=== PATIENT | female | born 1985 | race Hispanic/Latino ===

== ENCOUNTER 2021-04-23 12:22 | Emergency (ER) | payer MEDICAID ==
[2021-04-23 13:40] VITALS: BP 133/80
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
== END 2021-04-23 16:22 | disposition home or self-care (01) ==
LOC: ED 12:22
DX: M76.62 Achilles tendinitis, left leg (principal); J02.8 Acute pharyngitis due to other specified organisms; B96.89 Other specified bacterial agents as the cause of diseases classified elsewhere; Z79.2 Long term (current) use of antibiotics; Z79.899 Other long term (current) drug therapy
CPT/HCPCS: 99283

== ENCOUNTER 2021-05-14 08:13 | Emergency (ER) | payer SELFPAY ==
[2021-05-14 08:42] VITALS: BP 140/80
[2021-05-14] MEDS ORDERED: KETOROLAC 60 MG/2 ML INJ IM ONE (11:00)
[2021-05-14] MEDS ORDERED: dexAMETHasone 20 MG/5 ML VIAL IM ONE (11:00)
--- NOTE | 2021-05-14 11:06 | Emergency Department Report ---
ED General Adult HPI - General Chief complaint: Neck Pain/Injury Stated complaint: PAIN IN THE RIGHT SIDE OF NECK TO THE BACK Time Seen by Provider: 05/14/21 10:56 Source: patient Mode of arrival: Ambulatory Limitations: No Limitations - History of Present Illness Initial comments: Patient is a 35-year-old female who presents with 2 complaints. She states that her first complaint is right knee pain that began this morning. She states this morning when she was getting ready for work she felt a popping sensation in her right knee. She states that she did not fall to the ground. She denies ever injuring this knee in the past. She is ambulatory. Patient states that her second complaint is that she has right-sided neck pain that radiates down her right arm that began 3 to 4 days ago. She reports that she went to another hospital and they prescribed her Flexeril and tramadol and gave her 4 tablets of each but has not been helping. She denies any fall or injury. She denies any numbness, weakness, bowel or bladder incontinence, fever, neck stiffness, nausea, vomiting, diarrhea. Patient denies any past medical history. No allergies to medications. She denies any history of diabetes. She states that her menstrual cycle just ended yesterday. - Related Data Previous Rx's Medication Instructions Recorded Last Taken Type Amoxicillin [Trimox CAP] 500 mg PO BID 10 Days #20 capsule 04/23/21 Unknown Rx Naproxen 500 mg PO BID PRN #20 tablet 04/23/21 Unknown Rx Menthol/Camphor [Follett Bill[place] 1 applicatio TP BID #18 oint...g. 05/14/21 Unknown Rx Ointment] Naproxen [EC-Naprosyn] 500 mg PO BID PRN #20 tablet.dr 05/14/21 Unknown Rx Prednisone [predniSONE 10 mg 10 mg PO .TAPER #1 tab.ds.pk 05/14/21 Unknown Rx (6-Day Pack, 21 Tabs)] methOCARBAMOL [Robaxin TAB] 500 mg PO BID PRN #20 tab 05/14/21 Unknown Rx Allergies Allergy/AdvReac Type Severity Reaction Status Date / Time No Known Allergies Allergy Verified 04/23/21 13:40 ED Review of Systems ROS: Stated complaint: PAIN IN THE RIGHT SIDE OF NECK TO THE BACK Other details as noted in HPI Comment: All other systems reviewed and negative ED Past Medical Hx - Past Medical History Previous Medical History?: No - Surgical History Past Surgical History?: Yes Hx Cholecystectomy: Yes Additional Surgical History: - Social History Smoking Status: Current Every Day Smoker Substance Use Type: Alcohol - Medications Home Medications: Home Medications Medication Instructions Recorded Confirmed Last Taken Type Amoxicillin [Trimox CAP] 500 mg PO BID 10 Days #20 capsule 04/23/21 Unknown Rx Naproxen 500 mg PO BID PRN #20 tablet 04/23/21 Unknown Rx Menthol/Camphor [Follett [place] 1 applicatio TP BID #18 oint...g. 05/14/21 Unknown Rx Ointment] Naproxen [EC-Naprosyn] 500 mg PO BID PRN #20 tablet. 05/14/21 Unknown Rx Prednisone [predniSONE 10 mg 10 mg PO .TAPER #1 tab.ds.pk 05/14/21 Unknown Rx (6-Day Pack, 21 Tabs)] methOCARBAMOL [Robaxin TAB] 500 mg PO BID PRN #20 tab 05/14/21 Unknown Rx ED Physical Exam - General Limitations: No Limitations General appearance: alert, in no apparent distress - Head Head exam: Present: atraumatic, normocephalic - Eye Eye exam: Present: normal appearance - ENT ENT exam: Present: mucous membranes moist - Neck Neck exam: Present: normal inspection, tenderness (right sided C-spine paraspinal ttp, no midline C-spine ttp, no step offs, no deformities ), full ROM. Absent: meningismus - Respiratory Respiratory exam: Present: normal lung sounds bilaterally. Absent: respiratory distress, wheezes, rales, rhonchi, stridor, chest wall tenderness, accessory muscle use, decreased breath sounds, prolonged expiratory - Cardiovascular Cardiovascular Exam: Present: regular rate, normal rhythm, normal heart sounds. Absent: systolic murmur, diastolic murmur, rubs, gallop - Extremities Exam Extremities exam: Present: other (ttp to the right anterior knee, FROM of the RLE with discomfort upon flexion of the right knee, no deformity, no edema, neurovascularly intact) - Back Exam Back exam: Present: normal inspection, full ROM. Absent: paraspinal tenderness, vertebral tenderness - Neurological Exam Neurological exam: Present: alert, oriented X3, CN II-XII intact, normal gait. Absent: motor sensory deficit - Psychiatric Psychiatric exam: Present: normal affect, normal mood - Skin Skin exam: Present: warm, dry, intact ED Course Vital Signs 05/14/21 08:36 Temperature 98.4 F Pulse Rate 81 Respiratory 20 Rate Blood Pressure 140/80 O2 Sat by Pulse 100 Oximetry ED Medical Decision Making - Radiology Data Radiology results: report reviewed Ordering Physician: PATRICIO HANSEN Date of Service: 05/14/21 Procedure(s): XR knee 3V RT Accession Number(s): [id number] cc: PATRICIO HANSEN Fluoro Time In Minutes: Right knee radiograph, 3 views. HISTORY: Pain COMPARISON: None FINDINGS: No acute fracture, malalignment, or joint capsular distention. Soft tissues are unremarkable. IMPRESSION: No acute process of the right knee. Signer Name: Leonela Wilson MD Signed: 05/14/2021 11:45 AM Workstation Name: [id number] Transcribed By: JS Dictated By: LEONELA WILSON MD Electronically Authenticated By: LEONELA WILSON MD Signed Date/Time: 05/14/21 1145 DD/ 1144 TD/TT: Print - Medical Decision Making Patient is a 35-year-old female who presents with 2 complaints. She states that her first complaint is right knee pain that began this morning. She states this morning when she was getting ready for work she felt a popping sensation in her right knee. She states that she did not fall to the ground. She denies ever injuring this knee in the past. She is ambulatory. Patient states that her second complaint is that she has right-sided neck pain that radiates down her right arm that began 3 to 4 days ago. She reports that she went to another hospital and they prescribed her Flexeril and tramadol and gave her 4 tablets of each but has not been helping. She denies any fall or injury. She denies any numbness, weakness, bowel or bladder incontinence, fever, neck stiffness, nausea, vomiting, diarrhea. Patient denies any past medical history. No allergies to medications. She denies any history of diabetes. She states that her menstrual cycle just ended yesterday. Vitals are stable. On exam:right sided C-spine paraspinal ttp, no midline C-spine ttp, no step offs, no deformities, ttp to the right anterior knee, FROM of the RLE with discomfort upon flexion of the right knee, no deformity, no edema, neurovascularly intact, no focal neuro deficits. X-ray right knee: IMPRESSION: No acute process of the right knee. Symptoms likely related to knee sprain. Neck pain could be related to muscle strain versus cervical radiculopathy. Patient has had no trauma, she has no fever, no meningeal signs, she denies IV drug use, steroid use, or history of cancer. Patient given medications while in the emergency department with improvement of her symptoms. Patient given prescription for medications. Patient placed in Lucas wrap by nurse remained neurovascularly intact. Advised patient Please use medication as prescribed. Do not drive or operate machinery while taking muscle relaxer Robaxin. May use ice pack, heating pad, rest, and salt bath. Do not use ointment while doing heat or ice. Follow-up with orthopedic doctor. Follow-up with your primary care doctor. Return to emergency room for any new or worsening symptoms. Critical care attestation.: If time is entered above; I have spent that time in minutes in the direct care of this critically ill patient, excluding procedure time. ED Disposition Clinical Impression: Neck pain Right knee pain Qualifiers: Chronicity: acute Qualified Code(s): M25.561 - Pain in right knee Disposition: DC-01 TO HOME OR SELFCARE Is pt being admited?: No Does the pt Need Aspirin: No Condition: Stable Instructions: Cervical Radiculopathy, Acute Knee Pain, Adult, Muscle Strain, [id number] Additional Instructions: Please use medication as prescribed. Do not drive or operate machinery while taking muscle relaxer Robaxin. May use ice pack, heating pad, rest, and salt bath. Do not use ointment while doing heat or ice. Follow-up with orthopedic doctor. Follow-up with your primary care doctor. Return to emergency room for any new or worsening symptoms. Prescriptions: Naproxen [EC-Naprosyn] 500 mg PO BID PRN #20 tablet. PRN Reason: pain Prednisone [predniSONE 10 mg (6-Day Pack, 21 Tabs)] 10 mg PO .TAPER #1 tab.ds.pk methOCARBAMOL [Robaxin TAB] 500 mg PO BID PRN #20 tab PRN Reason: muscle spasm/pain Menthol/Camphor [Follett Billings Ointment] 1 applicatio TP BID #18 oint...g. Referrals: BIJU TOLENTINO MD [Staff Physician] - 3-5 Days [facility] [Provider Group] - 3-5 Days [facility] [Other] - 3-5 Days Forms: Work/School Release Form(ED) Time of Disposition: 12:08 Print Language: LAO
--- NOTE | 2021-05-14 11:49 | XRay Report ---
Right knee radiograph, 3 views. HISTORY: Pain COMPARISON: None FINDINGS: No acute fracture, malalignment, or joint capsular distention. Soft tissues are unremarkabl e. IMPRESSION: No acute process of the right knee. Signer Name: Ruiz Wilson MD Signed: 05/14/2021 11:45 AM Workstation Name: [id number]
== END 2021-05-14 13:00 | disposition home or self-care (01) ==
LOC: ED 08:13
DX: M54.2 Cervicalgia (principal); M25.561 Pain in right knee; F17.200 Nicotine dependence, unspecified, uncomplicated; Z90.49 Acquired absence of other specified parts of digestive tract; Z98.890 Other specified postprocedural states; Z79.899 Other long term (current) drug therapy
CPT/HCPCS: 73562; 96372; 99283; J1100; J1885